=== PATIENT | female | born 1980 ===

== ENCOUNTER 2016-09-05 18:11 | Emergency (ER) | payer MEDICAID ==
[2016-09-05 20:42] LABS: HCG,QUALITATIVE URINE NEGATIVE
[2016-09-05] MEDS ORDERED: ACETAMINOPHEN 325 MG TABLET ONE (20:59)
[2016-09-05] MEDS ORDERED: DIPHENHYDRAMINE HCL 50 MG/1 ML VIAL ONE (20:59)
[2016-09-05] MEDS ORDERED: KETOROLAC TROMETHAMINE 30 MG/ML 1 ML VIAL ONE (20:59)
[2016-09-05] MEDS ORDERED: DEXAMETHASONE 4 MG TABLET ONE (20:59)
[2016-09-05] MEDS ORDERED: PROCHLORPERAZINE 5 MG/ML 2 ML VIAL ONE (20:59)
[2016-09-05] MEDS ORDERED: DEXAMETHASONE SOD PHOS 4 MG/1 ML VIAL ONE ×2 (21:02→21:04)
[2016-09-05] MEDS ORDERED: DEXAMETHASONE SOD PHOS 10 MG/1 ML VIAL ONE (21:03)
== END 2016-09-05 21:44 | disposition home or self-care (01) ==
LOC: ED 18:11
DX: R51 Headache (principal); H10.10 Acute atopic conjunctivitis, unspecified eye
CPT/HCPCS: 81025; 99283 ×2; 96372 ×3; J1200; J0780; A9270 ×2; J1100 ×3; J1885